=== PATIENT | male | born 1945 | race Caucasian/White ===

== ENCOUNTER 2022-06-03 06:42 | Day surgery (SDC) | payer MEDICARE, OTHER ==
[2022-06-03] VITALS (34 sets, daily range): BP systolic 109–158; BP diastolic 60–109
[~2022-06-03] VITALS: Ht 185.4 cm; Wt 120.2 kg
[2022-06-03] MEDS ORDERED: sodium bicarbonate 1meq/ml syr 150 ML in dextrose 5%-water 850 ML IV ONE (07:20)
[2022-06-03] MEDS ORDERED: LISI20TA28 PO (07:23)
[2022-06-03] MEDS ORDERED: ASPI-1071 PO (07:23)
[2022-06-03] MEDS ORDERED: FURO40TA4 PO (07:23)
[2022-06-03] MEDS ORDERED: PRAM0.754 PO (07:23)
[2022-06-03] MEDS ORDERED: POTA-82 PO (07:23)
[2022-06-03] MEDS ORDERED: acetylcysteine 200 MG/ml 4ml vial PO PRN (07:23)
[2022-06-03 07:34] LABS: BASOPHILS # (AUTO) 0.1 X10'3 (0-0.2); BASOPHILS % (AUTO) 0.7 % (0-1); EOSINOPHILS # (AUTO) 0.2 X10'3 (0-0.9); EOSINOPHILS % (AUTO) 2.5 % (0-6); HEMATOCRIT 45.4 % (42.0-52.0); HEMOGLOBIN 14.9 g/dl (14.0-17.9); LYMPHOCYTES # (AUTO) 1.7 X10'3 (1.1-4.8); LYMPHOCYTES % (AUTO) 21.2 % (21-51); MEAN CORPUSCULAR HEMOGLOBIN 31.3 PG (27.0-31.0); MEAN CORPUSCULAR HGB CONC 32.9 g/dL (33.0-36.5); MEAN PLATELET VOLUME 8.4 FL (7.4-10.4); MONOCYTES # (AUTO) 0.7 X10'3 (0-0.9); MONOCYTES % (AUTO) 9.1 % (2-12); NEUTROPHILS # (AUTO) 5.2 X10'3 (1.8-7.7); NEUTROPHILS % (AUTO) 66.5 % (42-75); PLATELET COUNT 203 X10'3 (140-440); RED BLOOD COUNT 4.77 X10'6 (4.70-6.10); RED CELL DISTRIBUTION WIDTH 14.5 % (11.5-14.5); WHITE BLOOD COUNT 7.8 X10'3 (4.5-11.0)
[2022-06-03] MEDS ORDERED: fentaNYL/PF 50MCG/1 ML 2ML syringe ONE (07:34)
[2022-06-03] MEDS ORDERED: nitroGLYCERIN-Tridil 50MG/D5W 250 ML IV ONE (07:34)
[2022-06-03] MEDS ORDERED: verapamil 2.5 mg/ml inj IV ONE (07:34)
[2022-06-03] MEDS ORDERED: midazolam 1 mg/ML 2ml injection ONE (07:34)
[2022-06-03] MEDS ORDERED: LIDOcaine 1% (10mg/ml) 2ml vial ONE (07:35)
[2022-06-03] MEDS ORDERED: heparin 1,000unit/ml 10ml vial 10 ML ONE (07:35)
[2022-06-03] MEDS ORDERED: iohexol 350MG/ML 100ml bottle IV ONE ×2 (07:35→09:07)
[2022-06-03 07:58] LABS: APTT 27 SECONDS (22-32)
[2022-06-03] MEDS ORDERED: furosemide 40mg/4ml inj ONE (09:24)
[2022-06-03] MEDS ORDERED: heparin 25,000 UNIT/250ml bag 250 ML IV ONE (09:31)
[2022-06-03 09:39] LABS: ALBUMIN 3.2 G/DL (3.4-5.0); ANION GAP 14 (8-16); BLOOD UREA NITROGEN 28 MG/DL (7-18); BUN/CREATININE RATIO 18.2 (5.4-32.0); CALCIUM 8.6 MG/DL (8.5-10.1); CHLORIDE 104 MMOL/L (99-107); CHOLESTEROL 140 MG/DL (0-200); CREATININE 1.54 MG/DL (0.60-1.10); GLUCOSE 172 MG/DL (70-104); HDL CHOLESTEROL 47 MG/DL (35-60); LDL CHOLESTEROL 85 MG/DL (50-100); POTASSIUM 4.5 MMOL/L (3.5-5.1); SODIUM 141 MMOL/L (135-145); TOTAL CARBON DIOXIDE 22.9 MMOL/L (24-32); TRIGLYCERIDES 56 MG/DL (20-135); eGFR 44 ML/MIN
[2022-06-03] MEDS ORDERED: DOBUTamine-DoBUTrex 500mg/D5W 250 ML IV ONE (09:45)
--- NOTE | 2022-06-03 11:30 | NUR ---
Dr. Kam at bedside talking with pt and .
--- NOTE | 2022-06-03 11:45 | NUR ---
Begin dobutamine stress ECHO.
[2022-06-03 11:58] LABS: ISTAT Hct MIX 42 %PCV (42-52); ISTAT O2 SATURATION MIX VENOUS 57 % (60-80); ISTAT SOURCE BLNK
[2022-06-03 11:58] LABS: ISTAT HGB ART 13.9 g/dl (14.0-17.9); ISTAT Hct ART 41 %PCV (42-52); ISTAT O2 SATURATION ARTERIAL 95 % (95-98); ISTAT SOURCE BLNK
--- NOTE | 2022-06-03 12:12 | NUR ---
End dobutamine stress ECHO, pt gomez well
--- NOTE | 2022-06-03 13:00 | NUR ---
Pt sitting at EOB eating sandwich with with , gomez cui
[2022-06-03] MEDS ORDERED: POTASSIUM BICARBONATE/CIT AC 10 MEQ TABLET.EFF PO ONE (13:15)
[2022-06-03] MEDS ORDERED: magnesium oxide 400mg tablet PO ONE (13:15)
--- NOTE | 2022-06-03 15:20 | NUR ---
Dr. Kam at bedside had phone conference with and pt regarding plan of care and options to treat. Pt decides he wants to go home tonight and come back at a later date for stenting. Dr. Kam okay with pt plan and orders received.
[2022-06-03] MEDS ORDERED: DOBUTamine-DoBUTrex 500mg/D5W 250 ML IV SCH (15:30)
[2022-06-03] MEDS ORDERED: furosemide 40mg/4ml inj IV ONE (15:35)
--- NOTE | 2022-06-03 15:40 | NUR ---
Phoned and left message about new prescriptions sent to [facility] on [facility].
--- NOTE | 2022-06-03 17:05 | NUR ---
Phone [facility] on [facility] to confirm receipt of med script, spoke to pharmacist Mariama and gave Rx for Lasix 40mg po BID, K-Dur 20mEq po BID and Coreg 3.125mg po BID.
--- NOTE | 2022-06-03 17:30 | NUR ---
Pt amb to rest room, gait steady, void in toilet and BM. Returned to sitting on EOB to eat dinner.
--- NOTE | 2022-06-03 17:58 | NUR ---
Attempted to phone to go over DC instructions and answer any questions prior to RN change of shift. Left message on home and cell phone numbers.
--- NOTE | 2022-06-03 18:15 | NUR ---
Pt returned to bed, resting quietly, VSS, denies pain. Right radial site stable, dressing CD&I.
--- NOTE | 2022-06-03 19:45 | NUR ---
Dr. Kam phoned to check on pt. Gave update. Dr. Kam gave order to call in RX for crestor 40mg po at HS.
[2022-06-03] MEDS ORDERED: carvedilol 6.25mg tablet PO SCH (20:00)
[2022-06-03] MEDS ORDERED: ACETYLCYSTEINE 200 MG/1 ML 4 ML ORAL SOLUTION PO SCH (20:00)
[2022-06-03] MEDS ORDERED: furosemide 40mg/4ml inj IV SCH (20:00)
--- NOTE | 2022-06-03 20:04 | NUR ---
Phoned RX for crestor 40mg po at HS to [facility] on [facility] spoke to pharmacist John.
--- NOTE | 2022-06-03 20:10 | NUR ---
3800 total out in urine. Pt received 1000ml in bicarb drip. Addendum: 06/03/22 at 2011 by Abigail Patino RN Amended: Links added.
== END 2022-06-03 19:50 | disposition home or self-care (01) ==
LOC: SSTAY O 06:42
PROVIDERS: ATTEND Internal Medicine Cardiovascular Disease
DX: I25.10 Atherosclerotic heart disease of native coronary artery without angina pectoris (principal); E78.5 Hyperlipidemia, unspecified; I42.0 Dilated cardiomyopathy; E66.3 Overweight; I50.22 Chronic systolic (congestive) heart failure; Z79.899 Other long term (current) drug therapy; Z98.890 Other specified postprocedural states
CPT/HCPCS: 36415; 76937; 80048; 80061; 82803; 83880; 85014; 85025; 85610; 85730; 93005; 93306; 93350; 93460; 99152; 99153; C1751; C1769; C1874; C1894; C9600; J1250; J1644; J1940; J2250; J3010; J3490; J7030; J7070; Q9967; A6258; A6402

== ENCOUNTER 2022-06-05 08:11 | Day surgery (SDC) | payer MEDICARE, OTHER ==
[~2022-06-05] VITALS: Ht 185.4 cm; Wt 119.2 kg
[2022-06-05] VITALS (18 sets, daily range): BP systolic 102–157; BP diastolic 65–100
[~2022-06-05 08:11] MED LIST: ASPI-1071 PO; FURO40TA4 PO; LISI20TA28 PO; POTA-82 PO; PRAM0.754 PO
[2022-06-05] MEDS ORDERED: LORazepam 0.5 MG tablet PO PRN (08:35)
[2022-06-05] MEDS ORDERED: sodium bicarbonate (8.4%) inj. 150 ML in dextrose 5%-water 850 ML IV ONE (08:35)
[2022-06-05] MEDS ORDERED: diphenhydrAMINE 25mg capsule PO PRN (08:35)
[2022-06-05] MEDS ORDERED: FURO-149 PO (09:57)
[2022-06-05] MEDS ORDERED: POTA-207 PO (09:57)
[2022-06-05] MEDS ORDERED: CARV3.12 PO (09:57)
[2022-06-05 10:10] LABS: BASOPHILS # (AUTO) 0.1 X10'3 (0-0.2); BASOPHILS % (AUTO) 0.8 % (0-1); EOSINOPHILS # (AUTO) 0.2 X10'3 (0-0.9); EOSINOPHILS % (AUTO) 2.5 % (0-6); HEMATOCRIT 42.8 % (42.0-52.0); HEMOGLOBIN 14.1 g/dl (14.0-17.9); LYMPHOCYTES # (AUTO) 1.2 X10'3 (1.1-4.8); LYMPHOCYTES % (AUTO) 16.5 % (21-51); MEAN CORPUSCULAR HEMOGLOBIN 31.3 PG (27.0-31.0); MEAN CORPUSCULAR HGB CONC 32.8 g/dL (33.0-36.5); MEAN CORPUSCULAR VOLUME 95.2 FL (78-98); MEAN PLATELET VOLUME 8.6 FL (7.4-10.4); MONOCYTES # (AUTO) 0.8 X10'3 (0-0.9); MONOCYTES % (AUTO) 10.3 % (2-12); NEUTROPHILS # (AUTO) 5.3 X10'3 (1.8-7.7); NEUTROPHILS % (AUTO) 69.9 % (42-75); PLATELET COUNT 182 X10'3 (140-440); RED CELL DISTRIBUTION WIDTH 14.3 % (11.5-14.5); WHITE BLOOD COUNT 7.6 X10'3 (4.5-11.0)
[2022-06-05] MEDS ORDERED: acetylcysteine 200 MG/ml 4ml vial PO ONE (10:15)
[2022-06-05 10:16] LABS: APTT 27 SECONDS (22-32)
[2022-06-05 10:18] LABS: ANION GAP 9 (8-16); BLOOD UREA NITROGEN 26 MG/DL (7-18); BUN/CREATININE RATIO 17.2 (5.4-32.0); CALCIUM 8.7 MG/DL (8.5-10.1); CHLORIDE 103 MMOL/L (99-107); CREATININE 1.51 MG/DL (0.60-1.10); GLUCOSE 182 MG/DL (70-104); POTASSIUM 4.3 MMOL/L (3.5-5.1); SODIUM 140 MMOL/L (135-145); TOTAL CARBON DIOXIDE 28.2 MMOL/L (24-32); eGFR 45 ML/MIN
[2022-06-05] MEDS: DOBUTamine 2000 MCG/250ML BAG IV SCH ×2 (10:19→23:13)
[2022-06-05] MEDS: acetylcysteine 200 MG/ml 4ml vial PO SCH (10:21)
[2022-06-05] MEDS ORDERED: ROSU40TA PO (10:47)
[2022-06-05] MEDS ORDERED: heparin 25,000 UNIT/250ml bag 250 ML IV ONE (14:06)
[2022-06-05] MEDS ORDERED: heparin 1,000unit/ml 10ml vial 10 ML ONE (14:06)
[2022-06-05] MEDS ORDERED: verapamil 2.5 mg/ml inj IV ONE (14:06)
[2022-06-05] MEDS ORDERED: nitroGLYCERIN-Tridil 50MG/D5W 250 ML IV ONE (14:06)
[2022-06-05] MEDS ORDERED: fentaNYL/PF 50MCG/1 ML 2ML syringe ONE (14:06)
[2022-06-05] MEDS ORDERED: LIDOcaine 1% 30ml preserv. free vial ONE (14:06)
[2022-06-05] MEDS ORDERED: midazolam 1 mg/ML 2ml injection ONE (14:06)
[2022-06-05] MEDS ORDERED: iohexol 350MG/ML 100ml bottle IV ONE ×2 (14:07→15:24)
[2022-06-05] MEDS ORDERED: clopidogrel 300mg tablet ONE (15:45)
[2022-06-05] MEDS ORDERED: POTASSIUM BICARB 20meq eff tab 20 MEQ TABLET.EFF PO ONE (16:30)
[2022-06-05] MEDS ORDERED: furosemide 40mg/4ml inj IV ONE (16:30)
[2022-06-05] MEDS ORDERED: metolazone 2.5mg tablet PO ONE (16:50)
--- NOTE | 2022-06-05 17:07 | NUR ---
Call to Dr Kam, orders to continue dobutamine gtt and sodium bicarb on admit. Orders for EKG in am, npo after midnight for cardiac cath tomorrow at 11 am. aware and in agreement with the plan. Awaiting Tele floor bed.
--- NOTE | 2022-06-05 17:48 | NUR ---
[facility] I have received report from Yajaira FIGUEREDO and had the opportunity to ask questions and assume patient care.Bedside report completed. Pt Dobutamine gtt and Bicarb running. R radial cuff inflated with 13 ml of air. No bleeding at site. Addendum: 06/05/22 at 1750 by Pushpa Amezcua RN Amended: Links added.
--- NOTE | 2022-06-05 18:26 | NUR ---
Problems reprioritized. Patient report given, questions answered & plan of care reviewed with Leora FIGUEREDO. bedside report completed. Lasix 40mg IV given. Band site remains clear. Pt denies needs, call light in reach. Addendum: 06/05/22 at 1827 by Pushpa Amezcua RN Amended: Links added.
[2022-06-05] MEDS ORDERED: furosemide 40mg tablet PO SCH (20:00)
[2022-06-05] MEDS ORDERED: furosemide 40mg/4ml inj IV SCH (20:00)
[2022-06-05] MEDS ORDERED: POTASSIUM BICARB 20meq eff tab 20 MEQ TABLET.EFF PO SCH (20:00)
[2022-06-05] MEDS: pramipexole 0.25mg tablet PO SCH (20:12)
[2022-06-05] MEDS: carVEDilol 3.125mg tablet PO SCH (20:12)
[2022-06-05] MEDS: POTASSIUM BICARB 20meq eff tab 20 MEQ TABLET.EFF PO SCH (22:38)
[2022-06-05] MEDS ORDERED: furosemide 20 MG/2 ML vial IV ONE (23:00)
[2022-06-05] MEDS: furosemide 40mg/4ml inj IV SCH (23:13)
[2022-06-06] VITALS (12 sets, daily range): BP systolic 101–164; BP diastolic 53–99
[2022-06-06] MEDS ORDERED: potassium Cl 20 mEq SR tablet PO STA (03:09)
[2022-06-06] MEDS ORDERED: magnesium 2GM in 50ml NS 50 ML IV ONE (03:10)
[2022-06-06 06:43] LABS: BASOPHILS # (AUTO) 0.1 X10'3 (0-0.2); EOSINOPHILS # (AUTO) 0.2 X10'3 (0-0.9); EOSINOPHILS % (AUTO) 3.2 % (0-6); HEMATOCRIT 43.1 % (42.0-52.0); HEMOGLOBIN 14.3 g/dl (14.0-17.9); LYMPHOCYTES # (AUTO) 1.2 X10'3 (1.1-4.8); MEAN CORPUSCULAR HEMOGLOBIN 31.4 PG (27.0-31.0); MEAN CORPUSCULAR HGB CONC 33.3 g/dL (33.0-36.5); MEAN CORPUSCULAR VOLUME 94.5 FL (78-98); MEAN PLATELET VOLUME 8.5 FL (7.4-10.4); MONOCYTES # (AUTO) 0.7 X10'3 (0-0.9); MONOCYTES % (AUTO) 10.2 % (2-12); NEUTROPHILS # (AUTO) 4.9 X10'3 (1.8-7.7); NEUTROPHILS % (AUTO) 68.6 % (42-75); PLATELET COUNT 184 X10'3 (140-440); RED BLOOD COUNT 4.56 X10'6 (4.70-6.10); RED CELL DISTRIBUTION WIDTH 14.4 % (11.5-14.5); WHITE BLOOD COUNT 7.1 X10'3 (4.5-11.0)
[2022-06-06 07:02] LABS: ALANINE AMINOTRANSFERASE 24 U/L (12-78); ALBUMIN/GLOBULIN RATIO 0.9 (1.1-1.5); ALKALINE PHOSPHATASE 77 IU/L (46-116); ANION GAP 4 (8-16); ASPARTATE AMINO TRANSFERASE 26 U/L (10-37); BILIRUBIN,TOTAL 1.1 MG/DL (0.1-1.0); BLOOD UREA NITROGEN 22 MG/DL (7-18); BUN/CREATININE RATIO 15.5 (5.4-32.0); CHLORIDE 97 MMOL/L (99-107); CREATININE 1.42 MG/DL (0.60-1.10); GLUCOSE 164 MG/DL (70-104); MAGNESIUM 2.4 MG/DL (1.5-2.4); POTASSIUM 3.9 MMOL/L (3.5-5.1); SODIUM 136 MMOL/L (135-145); TOTAL CARBON DIOXIDE 35.5 MMOL/L (24-32); TOTAL PROTEIN 6.5 G/DL (6.4-8.2); eGFR 49 ML/MIN
[2022-06-06] MEDS: metolazone 2.5mg tablet PO SCH (07:19)
[2022-06-06] MEDS: carVEDilol 3.125mg tablet PO SCH ×2 (08:00→19:49)
[2022-06-06] MEDS ORDERED: clopidogrel 75mg tablet PO SCH (08:00)
[2022-06-06] MEDS ORDERED: atorvastatin 20mg tablet PO SCH (08:00)
[2022-06-06] MEDS: aspirin 81mg, enteric-coated 1 TAB TABLET.DR PO SCH (08:28)
[2022-06-06] MEDS: acetylcysteine 200 MG/ml 4ml vial PO SCH ×2 (08:29→20:03)
[2022-06-06] MEDS: furosemide 40mg/4ml inj IV SCH ×2 (08:29→19:50)
[2022-06-06] MEDS: POTASSIUM BICARB 20meq eff tab 20 MEQ TABLET.EFF PO SCH ×2 (08:43→19:49)
[2022-06-06] MEDS ORDERED: iohexol 300mg/ml 100ml inj. ONE (10:40)
[2022-06-06] MEDS ORDERED: heparin 1,000unit/ml 10ml vial 10 ML ONE (10:40)
[2022-06-06] MEDS ORDERED: nitroGLYCERIN-Tridil 50MG/D5W 250 ML IV ONE (10:40)
[2022-06-06] MEDS ORDERED: midazolam 1 mg/ML 2ml injection ONE (10:40)
[2022-06-06] MEDS ORDERED: LIDOcaine 1% (10mg/ml) 2ml vial ONE (10:40)
[2022-06-06] MEDS ORDERED: verapamil 2.5 mg/ml inj IV ONE (10:40)
[2022-06-06] MEDS ORDERED: fentaNYL/PF 50MCG/1 ML 2ML syringe ONE (10:40)
[2022-06-06] MEDS ORDERED: proCHLORperazine 10 MG/2 ml inj ONE (10:59)
[2022-06-06] MEDS ORDERED: heparin 25,000 UNIT/250ml bag 250 ML IV ONE (11:27)
[2022-06-06] MEDS ORDERED: clopidogrel 300mg tablet ONE (11:57)
--- NOTE | 2022-06-06 13:23 | NUR ---
Orders for inpatient status put in per Dr. Kam.
[2022-06-06] MEDS: DOBUTamine 2000 MCG/250ML BAG IV SCH (15:29)
[2022-06-06] MEDS ORDERED: OXAZEpam 15mg capsule PO PRN (17:15)
--- NOTE | 2022-06-06 18:47 | NUR ---
Problems reprioritized. Patient report given, questions answered & plan of care reviewed with Leora FIGUEREDO, patient stable at transfer of care.
[2022-06-06] MEDS: pramipexole 0.25mg tablet PO SCH (20:01)
[2022-06-07 02:33] VITALS: BP 135/81
[2022-06-07] MEDS: DOBUTamine 2000 MCG/250ML BAG IV SCH (02:57)
[2022-06-07] MEDS ORDERED: clopidogrel 75mg tablet PO SCH (08:00)
[2022-06-07] MEDS: acetylcysteine 200 MG/ml 4ml vial PO SCH (10:00)
[2022-06-07] MEDS: metolazone 2.5mg tablet PO SCH (10:00)
[2022-06-07] MEDS: aspirin 81mg, enteric-coated 1 TAB TABLET.DR PO SCH (10:47)
[2022-06-07] MEDS: carVEDilol 3.125mg tablet PO SCH (10:47)
[2022-06-07] MEDS: POTASSIUM BICARB 20meq eff tab 20 MEQ TABLET.EFF PO SCH (10:48)
[2022-06-07] MEDS: furosemide 40mg/4ml inj IV SCH (10:49)
[2022-06-07] MEDS ORDERED: ASPI-1071 PO (12:18)
[2022-06-07] MEDS ORDERED: ROSU40TA PO (12:18)
[2022-06-07] MEDS ORDERED: CLOP-32 PO (12:18)
[2022-06-07] MEDS ORDERED: LOSA25TA96 PO (12:18)
[2022-06-07] MEDS ORDERED: CARV3.12 PO (12:18)
[2022-06-07] MEDS ORDERED: ZAR2.5T PO (12:18)
[2022-06-07 14:51] VITALS: BP 128/75
[2022-06-07 14:55] VITALS: BP 128/68
== END 2022-06-07 15:02 | disposition home or self-care (01) ==
LOC: SSTAY O 08:11 → PCU 3S 16:00 → UNDOADMIN 18:00 → SSTAY O 06-07 15:02
PROVIDERS: ATTEND Internal Medicine Cardiovascular Disease
DX: I25.10 Atherosclerotic heart disease of native coronary artery without angina pectoris (principal); I42.0 Dilated cardiomyopathy; I11.0 Hypertensive heart disease with heart failure; I50.22 Chronic systolic (congestive) heart failure; I48.91 Unspecified atrial fibrillation; E78.5 Hyperlipidemia, unspecified; E66.3 Overweight; N19 Unspecified kidney failure; I35.0 Nonrheumatic aortic (valve) stenosis; G25.81 Restless legs syndrome; Z68.34 Body mass index [BMI] 34.0-34.9, adult; Z79.82 Long term (current) use of aspirin; Z79.01 Long term (current) use of anticoagulants; Z79.02 Long term (current) use of antithrombotics/antiplatelets; Z79.899 Other long term (current) drug therapy
CPT/HCPCS: 36415; 80053; 82948; 83735; 83880; 85025; 85347; 85610; 85730; 92920; 93005; 99152; 99153; C1725; C1751; C1769; C1874; C9600; C9601; J0780; J1250; J1644; J1940; J2250; J3010; J3475; J3490; J7030; J7070; Q0163; Q9967; 80048; G0378

== ENCOUNTER 2022-06-26 09:35 | Outpatient (CLI) | payer MEDICARE, OTHER ==
[~2022-06-26] VITALS: Ht 179.1 cm; Wt 62.6 kg
[~2022-06-26 09:35] MED LIST changes: +CARV3.12 PO; +CLOP-32 PO; +FURO-149 PO; -FURO40TA4 PO; -LISI20TA28 PO; +LOSA25TA96 PO; +POTA-207 PO; -POTA-82 PO; +ROSU40TA PO; +ZAR2.5T PO
[2022-06-26 10:16] LABS: BASOPHILS # (AUTO) 0.1 X10'3 (0-0.2); BASOPHILS % (AUTO) 0.7 % (0-1); EOSINOPHILS # (AUTO) 0.2 X10'3 (0-0.9); EOSINOPHILS % (AUTO) 2.5 % (0-6); HEMATOCRIT 44.9 % (42.0-52.0); HEMOGLOBIN 14.6 g/dl (14.0-17.9); LYMPHOCYTES # (AUTO) 1.8 X10'3 (1.1-4.8); LYMPHOCYTES % (AUTO) 18.5 % (21-51); MEAN CORPUSCULAR HEMOGLOBIN 30.8 PG (27.0-31.0); MEAN CORPUSCULAR HGB CONC 32.5 g/dL (33.0-36.5); MEAN CORPUSCULAR VOLUME 94.6 FL (78-98); MEAN PLATELET VOLUME 8.7 FL (7.4-10.4); MONOCYTES # (AUTO) 0.8 X10'3 (0-0.9); MONOCYTES % (AUTO) 8.6 % (2-12); NEUTROPHILS # (AUTO) 6.9 X10'3 (1.8-7.7); NEUTROPHILS % (AUTO) 69.7 % (42-75); PLATELET COUNT 224 X10'3 (140-440); RED BLOOD COUNT 4.75 X10'6 (4.70-6.10); RED CELL DISTRIBUTION WIDTH 14.1 % (11.5-14.5); WHITE BLOOD COUNT 9.9 X10'3 (4.5-11.0)
[2022-06-26 10:30] LABS: APTT 27 SECONDS (22-32)
[2022-06-26] MEDS ORDERED: IODIXANOL 320 MG/ML INFUS..BTL 100ML IV ONE (10:33)
[2022-06-26 10:36] LABS: ALANINE AMINOTRANSFERASE 28 U/L (12-78); ALBUMIN 3.5 G/DL (3.4-5.0); ALBUMIN/GLOBULIN RATIO 0.9 (1.1-1.5); ALKALINE PHOSPHATASE 83 IU/L (46-116); ANION GAP 10 (8-16); ASPARTATE AMINO TRANSFERASE 26 U/L (10-37); BILIRUBIN,TOTAL 0.7 MG/DL (0.1-1.0); BLOOD UREA NITROGEN 26 MG/DL (7-18); BUN/CREATININE RATIO 17.1 (5.4-32.0); CALCIUM 9.2 MG/DL (8.5-10.1); CHLORIDE 101 MMOL/L (99-107); CREATININE 1.52 MG/DL (0.60-1.10); GLUCOSE 220 MG/DL (70-104); POTASSIUM 4.4 MMOL/L (3.5-5.1); SODIUM 136 MMOL/L (135-145); TOTAL PROTEIN 7.4 G/DL (6.4-8.2); eGFR 45 ML/MIN
[2022-06-26 11:20] VITALS: BP 118/60
[2022-06-26] MEDS ORDERED: metoprolol tartrate 1mg/ml inj IV ONE (11:20)
[2022-06-26 11:25] VITALS: BP 101/76
[2022-06-26] MEDS ORDERED: albuterol 2.5 MG/3 ML nebule NEB ONE (13:20)
[2022-06-26 13:49] LABS: ABG BASE EXCESS -1.3 mmol/L (-2.0-2.0); ABG HCO3 21.5 mmol/L (22.0-26.0); ABG OXYGEN SATURATION 97.1 % (94-97); ABG PCO2 (T) 31.4 mmHg (35.0-48.0); ABG PO2 (T) 89.5 mmHg (75.0-100.0); ALLEN'S TEST POSITIVE; FCOHb 1.1 % (0.0-3.9); FMetHb 0.2 % (0.0-1.5); FO2Hb 95.8 % (94-97); TOTAL HEMOGLOBIN 15.3 G/dl (14.0-17.9)
== END 2022-06-26 23:59 | disposition home or self-care (01) ==
LOC: RAD 09:35
PROVIDERS: ATTEND Internal Medicine Cardiovascular Disease
DX: I71.23 Aneurysm of the descending thoracic aorta, without rupture (principal); I08.0 Rheumatic disorders of both mitral and aortic valves; R06.02 Shortness of breath; I65.23 Occlusion and stenosis of bilateral carotid arteries; I70.0 Atherosclerosis of aorta; I25.10 Atherosclerotic heart disease of native coronary artery without angina pectoris; R91.1 Solitary pulmonary nodule; K76.0 Fatty (change of) liver, not elsewhere classified; R16.0 Hepatomegaly, not elsewhere classified; K44.9 Diaphragmatic hernia without obstruction or gangrene; N28.1 Cyst of kidney, acquired; K57.30 Diverticulosis of large intestine without perforation or abscess without bleeding; K42.9 Umbilical hernia without obstruction or gangrene; K40.20 Bilateral inguinal hernia, without obstruction or gangrene, not specified as recurrent; M47.815 Spondylosis without myelopathy or radiculopathy, thoracolumbar region
CPT/HCPCS: 36415; 36600; 71046; 71275; 74174; 80053; 82803; 85018; 85025; 85610; 85730; 93880; 94060; 94727; 94729; 94760; J3490; Q9967

== ENCOUNTER 2022-08-27 06:35 | Inpatient (IN) | payer MEDICARE, OTHER ==
[2022-08-20 14:53] LABS: CLARITY,URINE CLEAR (Clear); COLOR,URINE YELLOW (Yellow); GLUCOSE, URINE NEGATIVE (Neg); KETONES,URINE NEGATIVE (Neg); LEUKOCYTE ESTERASE ,URINE NEGATIVE (Neg); NITRITES, URINE NEGATIVE (Neg); OCCULT BLOOD,URINE NEGATIVE (Neg); PH,URINE 5.5 (4.8-8.0); PROTEIN,URINE 30 mg/dl (Neg); UROBILINOGEN,URINE 0.2 E.U/dL (0.2-1.0)
[2022-08-20 14:55] LABS: UA COLLECTION TYPE VOIDED
[2022-08-20 15:05] LABS: BACTERIA,URINE FEW /HPF (Neg); HYALINE CASTS 0-3 /LPF (NEGATIVE); RBC,URINE 0-2 /HPF (0-2); SPERM FEW /HPF (NEGATIVE); SQUAMOUS EPITHELIAL CELL,UR FEW /LPF (FEW); WBC,URINE 0-4 /HPF (0-4)
[2022-08-20 15:24] LABS: BASOPHILS # (AUTO) 0.1 X10'3 (0-0.2); BASOPHILS % (AUTO) 0.9 % (0-1); EOSINOPHILS # (AUTO) 0.1 X10'3 (0-0.9); LYMPHOCYTES # (AUTO) 1.5 X10'3 (1.1-4.8); LYMPHOCYTES % (AUTO) 17.9 % (21-51); MEAN CORPUSCULAR HEMOGLOBIN 30.8 PG (27.0-31.0); MEAN CORPUSCULAR HGB CONC 32.7 g/dL (33.0-36.5); MEAN CORPUSCULAR VOLUME 94.1 FL (78-98); MEAN PLATELET VOLUME 8.5 FL (7.4-10.4); MONOCYTES # (AUTO) 0.9 X10'3 (0-0.9); MONOCYTES % (AUTO) 10.2 % (2-12); NEUTROPHILS # (AUTO) 5.9 X10'3 (1.8-7.7); PRE OP HEMATOCRIT 45.8 % (42.0-52.0); PRE OP PLATELET COUNT 197 X10'3 (140-440); RED BLOOD COUNT 4.86 X10'6 (4.70-6.10); RED CELL DISTRIBUTION WIDTH 15.8 % (11.5-14.5)
[2022-08-20 15:30] LABS: PRE OP INR 1.3 INR; PRE OP PROTIME 12.9 SECONDS (9.0-12.0)
[2022-08-20 15:33] LABS: ALBUMIN 3.4 G/DL (3.4-5.0); ALBUMIN/GLOBULIN RATIO 0.9 (1.1-1.5); ALKALINE PHOSPHATASE 105 IU/L (46-116); BLOOD UREA NITROGEN 25 MG/DL (7-18); BUN/CREATININE RATIO 14.9 (5.4-32.0); CALCIUM 9.1 MG/DL (8.5-10.1); CHLORIDE 102 MMOL/L (99-107); CREATININE 1.68 MG/DL (0.60-1.10); PRE OP ALT 17 U/L (30-65); PRE OP ANION GAP 7 (8-16); PRE OP AST 20 U/L (10-37); PRE OP BILIRUB, TOTAL 1.2 MG/DL (0.0-1.0); PRE OP GLUCOSE 197 MG/DL (70-104); PRE OP SODIUM 138 MMOL/L (135-145); TOTAL CARBON DIOXIDE 29.2 MMOL/L (24-32); TOTAL PROTEIN 7.3 G/DL (6.4-8.2); eGFR 40 ML/MIN
[~2022-08-27] VITALS: Ht 175.3 cm; Wt 111.8 kg
[2022-08-27] VITALS (28 sets, daily range): BP systolic 111–160; BP diastolic 71–105
[~2022-08-27 06:35] MED LIST changes: -CARV3.12 PO; +CARV3.122 PO; -CLOP-32 PO; +CLOP75TA33 PO; +DOCUMENT DATE & TIME OF BETA-BLOCKER PO ONE; -LOSA25TA96 PO; -ROSU40TA PO; +aspirin 325mg tablet PO ONE; +cefazolin 2gm/D5W 100mL 100 ML IV ONE; +famotidine 20mg tablet PO ONE; +nitroPRUSSIDE (NIPRIDE) (200MCG/ML) 100ML Drip IV SCH; +ondansetron/PF 4mg/2ml inj IV PRN; +phenylephrine inj 50 MG in normal saline 250ml IV solN IV SCH; +ringers solution, lacted 1,000 ML IV SCH; +vancomycin 1,500 MG in NS 300ml IV soln IV ONE
[2022-08-27] MEDS ORDERED: protamine sulfate 10mg/ml inj. ONE (06:36)
[2022-08-27] MEDS ORDERED: ringers solution, lacted 1,000 ML IV SCH (07:00)
[2022-08-27] MEDS ORDERED: PHENYLephrine 10mg/ml inj. 100 MG in normal saline 250ml IV soln 240 ML IV SCH (07:00)
[2022-08-27] MEDS ORDERED: morphine 4 MG/ML inj SYRINge IV PRN (07:00)
[2022-08-27] MEDS ORDERED: morphine 2 MG/ML inj. syringe IV PRN (07:00)
[2022-08-27] MEDS ORDERED: ondansetron/PF 4mg/2ml inj IV PRN ×2 (07:00→11:00)
[2022-08-27] MEDS ORDERED: nitroPRUSSIDE sod inj. 50 MG in dextrose 5%-water 248 ML IV SCH (07:00)
[2022-08-27] MEDS ORDERED: LIDOcaine 1% (10mg/ml) 2ml vial ONE (07:04)
[2022-08-27] MEDS ORDERED: iohexol 350MG/ML 100ml bottle IV ONE (08:33)
[2022-08-27] MEDS ORDERED: heparin 1,000 UNITS/NS 500ml 1,500 ML ONE (08:33)
[2022-08-27] MEDS ORDERED: LIDOcaine 1% 30ml preserv. free vial ONE (08:34)
[2022-08-27] MEDS ORDERED: midazolam 1 mg/ML 2ml injection ONE (08:41)
[2022-08-27] MEDS ORDERED: fentaNYL/PF 50MCG/1 ML 2ML syringe ONE (08:41)
[2022-08-27] MEDS ORDERED: sevoflurane 250ml liquid IH ONE (08:43)
[2022-08-27] MEDS ORDERED: LIDOcaine 2% (20mg/ml) 5ml vial ONE (08:43)
[2022-08-27] MEDS ORDERED: rocuronium bromide 100mg/10ml (10mg/ml) injection IV ONE (08:43)
[2022-08-27] MEDS ORDERED: propofol inj 20 ML IV ONE (08:49)
[2022-08-27] MEDS ORDERED: heparin 1,000unit/ml 10ml vial 0 ML ONE (08:49)
[2022-08-27] MEDS ORDERED: heparin 1,000unit/ml 10ml vial 10 ML ONE (09:20)
[2022-08-27] MEDS ORDERED: ePHEDrine 50MG/ML INJ. ONE ×2 (09:31→09:58)
[2022-08-27] MEDS ORDERED: furosemide 40mg/4ml inj ONE (09:51)
--- NOTE | 2022-08-27 10:43 | NUR ---
Received from OR via HOSPITAL BED, accompanied by Anesthesiologist TACO and report given by Anesthesiolgist. PT ARRIVES DROWSY ON SIMPLE MASK 02 BREATHING NORMALLY, REPORTS NO PAIN, BILATERAL GROIN DRESSING SITES CLEAN DRY AND INTACT, LEFT UPPER THIGH DRESSING CLEAN DRY AND INTACT. PT FORGETFUL TO SITUATION/PLACE, AWAKENS TO VERBAL STIMULI. VSS, PULSES BILATERAL DORSI PATENT WITH DOPPLER. PEERLA INTACT. NATALIE X4. Addendum: 08/27/22 at 1204 by Mikel Vera RN Amended: Links added.
[2022-08-27] MEDS ORDERED: acetaminophen 325mg tablet PO PRN (11:00)
[2022-08-27] MEDS ORDERED: magnesium 4gm in 100ml NS 100 ML IV PRN (11:00)
[2022-08-27] MEDS ORDERED: pantoprazole 40mg Tablet.DR PO PRN (11:00)
[2022-08-27] MEDS ORDERED: potassium Cl 40MEQ/1/2NS 520ml 520 ML IV PRN (11:00)
[2022-08-27] MEDS ORDERED: ALPRAZolam 0.25mg tablet PO PRN (11:00)
[2022-08-27] MEDS ORDERED: magnesium 2GM in 50ml NS 50 ML IV PRN (11:00)
[2022-08-27] MEDS ORDERED: potassium Cl 20 mEq SR tablet PO PRN (11:00)
[2022-08-27] MEDS ORDERED: docusate sod 100mg capsule PO PRN (11:00)
[2022-08-27] MEDS ORDERED: proCHLORperazine 10 MG/2 ml inj IV PRN (11:00)
[2022-08-27] MEDS ORDERED: potassium CL 10mEq/100ml bag 100 ML IV PRN (11:00)
[2022-08-27] MEDS ORDERED: labetalol 20mg/4ml (5mg/ml) syringe IV PRN (11:00)
[2022-08-27] MEDS: normal saline 1000ml 1,000 ML IV SCH ×2 (11:00→21:00)
[2022-08-27] MEDS ORDERED: potassium Cl 20mEq/100mL bag 100 ML IV PRN (11:00)
[2022-08-27] MEDS ORDERED: hydrALAZINE 20mg/ml inj. IV PRN (11:00)
[2022-08-27] MEDS ORDERED: potassium Cl 40MEQ/270ML bag 250 ML IV PRN (11:00)
[2022-08-27] MEDS ORDERED: diphenhydrAMINE 25mg capsule PO PRN (11:00)
[2022-08-27] MEDS ORDERED: HYDROcodone/acetaminophen 5mg/325mg tablet PO PRN (11:00)
--- NOTE | 2022-08-27 11:12 | NUR ---
PT HAS RED, OPEN ARE TO LEFT UPPER THIGH WITH BANDAID PRESENT AND IS WEEPING. PT HAS AREA TO RT LOWER EXTREMITY THAT IS WEEPING AND BANDAID IS PRESENT. MD AND OR MADE AWARE. NO NEW ORDERS RECEIVED AT THIS TIME. ALSO ASKED MD IF ASPIRIN TO BE GIVEN D/T PT TAKING HIS PLAVIX THIS AM. VERBAL ORDER TO GIVE ASPIRIN.
--- NOTE | 2022-08-27 12:05 | NUR ---
NEW LEFT GROIN DRESSING APPLIED BY DEN CLINE RN. CLEAN DRY AND INTACT. Addendum: 08/27/22 at 1211 by Mikel Vera RN Amended: Links added.
--- NOTE | 2022-08-27 13:11 | NUR ---
PT TRANSFERRED TO SHORT STAY 40 ROOM AT 1303 WITHOUT INCIDENT. PT HAD NO BELONGINGS. PT DRESSINGS CLEAN DRY AND INTACT. RN HAND OFF DONE AT BEDSIDE. Addendum: 08/27/22 at 1314 by Mikel Vera RN Amended: Links added.
--- NOTE | 2022-08-27 13:45 | NUR ---
Report given to Sreedhar Shea.
--- NOTE | 2022-08-27 14:00 | NUR ---
Pt rec'd, no c/o pain & VS stable. Right groin, dressing CDI, Left groin circled as there is oozing. Call light left with patient. Will continue to monitor.
--- NOTE | 2022-08-27 14:00 | NUR ---
Pt transferred to room 3012A. VSS, no c/o pain. Dressing to left groin has some drainage. Right groin CD&I. Dressing to left wrist CD&I.
--- NOTE | 2022-08-27 14:20 | NUR ---
Left groin oozing slowly, put weight bag on L groin, R groin dressing, CDI. Pedal pulses heard with doppler. No C/O or pain from patient. /
[2022-08-27] MEDS ORDERED: sod chloride 0.9% 10ml flush syringe IV SCH (16:00)
[2022-08-27] MEDS: ceFAZolin 1GM/D5W- ADD-VANTAGE 50 ML IV SCH (16:38)
--- NOTE | 2022-08-27 17:39 | NUR ---
Called Dr aGrdner: pt bleeding from left groin site. manual pressure held for 7 min. Changed dressing. CDI for now, will continue to monitor. Advised of increased resp (20-30) and dim lungs sounds on left. Order of elvira beach'emeka and dr will come to see patient soon.
[2022-08-27] MEDS ORDERED: furosemide 40mg/4ml inj IV ONE (17:48)
[2022-08-27] MEDS: furosemide 40mg tablet PO SCH (17:53)
--- NOTE | 2022-08-27 17:57 | NUR ---
Dr Gardner at bedside. Pt stable and left groin looks CDI. Ok to miss dose 20:00 of po lasix since I'm giving 40 IVP now. OOB changed from 1645 to 1900 if Left groin stable.
--- NOTE | 2022-08-27 18:08 | NUR ---
Called Diandra [phone] with update. All questions answered at this time.
[2022-08-27] MEDS ORDERED: CEPH-585 PO (18:37)
--- NOTE | 2022-08-27 18:49 | NUR ---
Problems reprioritized. Patient report given, questions answered & plan of care reviewed with TERELL Johnson.
[2022-08-27] MEDS ORDERED: pramipexole 0.25mg tablet PO SCH (21:00)
[2022-08-27] MEDS: vancomycin/NS 1 GM ADD-VANTAGE 250 ML IV SCH (21:22)
[2022-08-27] MEDS: carVEDilol 3.125mg tablet PO SCH (21:22)
[2022-08-27] MEDS: potassium Cl 20 mEq SR tablet PO SCH (21:26)
--- NOTE | 2022-08-27 23:00 | NUR ---
Jasennts left femoral bandage became saturated, Applied weight for 30 minutes and applied new dressing.
--- NOTE | 2022-08-28 | NUR ---
No drainage noted on new dressing to left groin.
[2022-08-28 02:00] VITALS: BP 112/65
[2022-08-28 06:30] VITALS: BP_SYST 0; BP_SYST 108; BP_DIAS 74
[2022-08-28] MEDS: normal saline 1000ml 1,000 ML IV SCH (06:52)
[2022-08-28 07:40] VITALS: BP_SYST 0; BP_SYST 108; BP_DIAS 74
[2022-08-28] MEDS ORDERED: clopidogrel 75mg tablet PO SCH (08:00)
[2022-08-28] MEDS ORDERED: metolazone 2.5mg tablet PO SCH (08:00)
[2022-08-28] MEDS ORDERED: aspirin 81mg, enteric-coated 1 TAB TABLET.DR PO SCH (08:00)
[2022-08-28 08:18] LABS: BASOPHILS # (AUTO) 0.1 X10'3 (0-0.2); BASOPHILS % (AUTO) 0.7 % (0-1); EOSINOPHILS # (AUTO) 0.2 X10'3 (0-0.9); EOSINOPHILS % (AUTO) 1.9 % (0-6); HEMATOCRIT 42.3 % (42.0-52.0); HEMOGLOBIN 13.7 g/dl (14.0-17.9); LYMPHOCYTES # (AUTO) 0.9 X10'3 (1.1-4.8); LYMPHOCYTES % (AUTO) 11.2 % (21-51); MEAN CORPUSCULAR HEMOGLOBIN 30.8 PG (27.0-31.0); MEAN CORPUSCULAR HGB CONC 32.4 g/dL (33.0-36.5); MEAN CORPUSCULAR VOLUME 95.2 FL (78-98); MEAN PLATELET VOLUME 8.7 FL (7.4-10.4); MONOCYTES # (AUTO) 0.8 X10'3 (0-0.9); MONOCYTES % (AUTO) 10.2 % (2-12); NEUTROPHILS # (AUTO) 6.3 X10'3 (1.8-7.7); PLATELET COUNT 138 X10'3 (140-440); RED BLOOD COUNT 4.45 X10'6 (4.70-6.10); RED CELL DISTRIBUTION WIDTH 15.9 % (11.5-14.5); WHITE BLOOD COUNT 8.3 X10'3 (4.5-11.0)
[2022-08-28] MEDS ORDERED: aspirin 81mg tab.chew PO SCH (08:30)
[2022-08-28] MEDS: ceFAZolin 1GM/D5W- ADD-VANTAGE 50 ML IV SCH ×2 (08:31)
[2022-08-28] MEDS: carVEDilol 3.125mg tablet PO SCH (08:32)
[2022-08-28] MEDS: furosemide 40mg tablet PO SCH (08:32)
[2022-08-28 08:51] LABS: ALANINE AMINOTRANSFERASE 13 U/L (12-78); ALBUMIN/GLOBULIN RATIO 0.8 (1.1-1.5); ALKALINE PHOSPHATASE 89 IU/L (46-116); ANION GAP 7 (8-16); ASPARTATE AMINO TRANSFERASE 31 U/L (10-37); BILIRUBIN,TOTAL 1.4 MG/DL (0.1-1.0); BLOOD UREA NITROGEN 27 MG/DL (7-18); BUN/CREATININE RATIO 15.3 (5.4-32.0); CALCIUM 8.6 MG/DL (8.5-10.1); CHLORIDE 102 MMOL/L (99-107); CREATININE 1.77 MG/DL (0.60-1.10); GLUCOSE 187 MG/DL (70-104); MAGNESIUM 1.9 MG/DL (1.5-2.4); SODIUM 141 MMOL/L (135-145); TOTAL CARBON DIOXIDE 31.7 MMOL/L (24-32); TOTAL PROTEIN 6.6 G/DL (6.4-8.2); eGFR 38 ML/MIN
[2022-08-28] MEDS: vancomycin/NS 1 GM ADD-VANTAGE 250 ML IV SCH (09:37)
[2022-08-28] MEDS: potassium Cl 20 mEq SR tablet PO SCH (09:37)
--- NOTE | 2022-08-28 10:55 | NUR ---
Pt rec'd on unit. Pt VS stable. Olga at bedside. Call light within reach. Addendum: 08/28/22 at 1120 by Monse Spicer RN wrong patient
[2022-08-28 11:11] VITALS: BP_SYST 0; BP_SYST 120; BP_SYST 126; BP_DIAS 64; BP_DIAS 71
--- NOTE | 2022-08-28 11:12 | NUR ---
Ambulated with patient, full 300 feet. No c/o pain or SOB. HR 120's while walking, recovered to 90's when sitting on bed. Addendum: 08/28/22 at 1117 by Monse Spicer RN wrong patient.
[2022-08-28 14:30] VITALS: BP_SYST 0; BP_SYST 113; BP_DIAS 70
--- NOTE | 2022-08-28 15:29 | NUR ---
pt stable for dc per md orders. All d/c ppwk was rev'd with patient and patient . All questions, comments, and concerns were answered at this time. All personal belongings were sent with patient. All TAVR education and follow up appts were reiterated - pt verbalized understanding. PIV removed - tip intact. Tele box, BP box, and O2 sensor returned to emergency telecommunications dispatcher. Closure device pamphlet and valve card given to patient . Pt wheeled out in w/c by nursing staff to private car where was waiting.
--- NOTE | 2022-08-28 19:34 | NUR ---
Student documentation: I have reviewed and agree with all interventions, assessments performed and documented by Ivonne.
--- NOTE | 2022-08-28 19:37 | NUR ---
Student Medication Administration: For this medication-pass time frame, all medication were reviewed, dispensed, administered and documented per hospital policy by Ivonne.
== END 2022-08-28 15:10 | disposition home or self-care (01) | DRG 266 ==
LOC: PAS IN 06:35 → EDSTATUS 08:45 → PCU 3S 14:10
PROVIDERS: ADMIT Internal Medicine Cardiovascular Disease; ATTEND Internal Medicine Cardiovascular Disease
PROC: 047L3ZZ Dilation of Left Femoral Artery, Percutaneous Approach (ICD-10-PCS; 2022-08-27)
PROC: B41D1ZZ Fluoroscopy of Aorta and Bilateral Lower Extremity Arteries using Low Osmolar Contrast (ICD-10-PCS; 2022-08-27)
PROC: 02RF38Z Replacement of Aortic Valve with Zooplastic Tissue, Percutaneous Approach (ICD-10-PCS; principal; 2022-08-27 08:43)
DX: I35.0 Nonrheumatic aortic (valve) stenosis (principal); Z00.6 Encounter for examination for normal comparison and control in clinical research program; I50.23 Acute on chronic systolic (congestive) heart failure; I13.0 Hypertensive heart and chronic kidney disease with heart failure and stage 1 through stage 4 chronic kidney disease, or unspecified chronic kidney disease; I48.20 Chronic atrial fibrillation, unspecified; I48.92 Unspecified atrial flutter; E78.5 Hyperlipidemia, unspecified; I25.10 Atherosclerotic heart disease of native coronary artery without angina pectoris; I48.0 Paroxysmal atrial fibrillation; N18.30 Chronic kidney disease, stage 3 unspecified; Z98.61 Coronary angioplasty status; Z79.899 Other long term (current) drug therapy
CPT/HCPCS: 33361; 36415; 37224; 71045; 71046; 76937; 80053; 81001; 82948; 83735; 83880; 85025; 85347; 85610; 85730; 86885; 86900; 86901; 86920; 87081; 93005; 93308; A4615; A4618; A6258; A6402; A6449; C1725; C1756; C1760; C1769; C1894; G0378; J0690; J1644; J1940; J2250; J2270; J2370; J2704; J2720; J3010; J3370; J3490; J7030; J7040; J7050; J7120; Q9967

== ENCOUNTER 2022-09-23 10:41 | Outpatient (CLI) | payer MEDICARE, OTHER ==
[~2022-09-23 10:41] MED LIST changes: -DOCUMENT DATE & TIME OF BETA-BLOCKER PO ONE; -aspirin 325mg tablet PO ONE; -cefazolin 2gm/D5W 100mL 100 ML IV ONE; -famotidine 20mg tablet PO ONE; -nitroPRUSSIDE (NIPRIDE) (200MCG/ML) 100ML Drip IV SCH; -ondansetron/PF 4mg/2ml inj IV PRN; -phenylephrine inj 50 MG in normal saline 250ml IV solN IV SCH; -ringers solution, lacted 1,000 ML IV SCH; -vancomycin 1,500 MG in NS 300ml IV soln IV ONE
== END 2022-09-23 23:59 | disposition home or self-care (01) ==
LOC: CARD DIAG 10:41
PROVIDERS: ATTEND Internal Medicine Cardiovascular Disease
DX: Z48.812 Encounter for surgical aftercare following surgery on the circulatory system (principal); I08.1 Rheumatic disorders of both mitral and tricuspid valves; Z95.2 Presence of prosthetic heart valve
CPT/HCPCS: 93306